=== PATIENT | male | born 1985 | race Native Hawaiian/Other Pacific Islander ===

== ENCOUNTER 2017-03-13 12:00 | Outpatient (CLI) | payer BC | END 2017-03-13 12:05 | disposition short-term general hospital (02) | LOC: AMB 12:00 | DX: R53.1 Weakness (principal); R11.2 Nausea with vomiting, unspecified | CPT/HCPCS: A0425; A0427 ==

== ENCOUNTER 2017-03-13 12:05 | Observation (INO) | payer BC ==
[~2017-03-13] VITALS: Ht 180.3 cm; Wt 116.8 kg
[2017-03-13] VITALS (7 sets, daily range): BP systolic 127–158; BP diastolic 68–96; TEMP 97.8–98.6; Ht 180.3 cm; Wt 116.8 kg
[2017-03-13 12:41] LABS: PLATELET COUNT 329 K/uL (142-355)
[2017-03-13 12:46] LABS: POTASSIUM 3.2 mmol/L (3.6-5.2)
[2017-03-14] VITALS: BP 111/50; TEMP 98.3
[2017-03-14 04:00] VITALS: BP 100/48; TEMP 98
[2017-03-14 08:00] VITALS: BP 126/64; TEMP 98.8
[2017-03-14 09:52] LABS: PARTIAL THROMBOPLASTIN TIME 25.1 SECONDS (24.5-33.6)
== END 2017-03-14 14:19 | disposition home or self-care (01) ==
LOC: ED 12:05 → MED/SURG 13:00
PROVIDERS: ADMIT Family Medicine
DX: G43.819 Other migraine, intractable, without status migrainosus (principal); R55 Syncope and collapse; R07.89 Other chest pain; J20.9 Acute bronchitis, unspecified; R11.2 Nausea with vomiting, unspecified
CPT/HCPCS: 80053; 80307; 81000; 82150; 82550; 82553; 83690; 83880; 84484; 85027; 85610; 85730; 93005; 94640; 94664; 94760; 96360; 96361; 96365; 96366; 96374; 96376; 99220; 99284; G0378; G0479; J1200; J1885; J2405; J2550

== ENCOUNTER 2020-01-04 10:56 | Outpatient (CLI) | payer OTHER | END 2020-01-04 23:59 | disposition home or self-care (01) | LOC: MRI 10:56 | DX: M54.12 Radiculopathy, cervical region (principal) ==

== ENCOUNTER 2020-09-14 08:46 | Outpatient (CLI) | payer OTHER | END 2020-09-14 20:05 | disposition home or self-care (01) | LOC: MRI 08:46 | PROVIDERS: ATTEND Anesthesiology Pain Medicine | DX: M54.5 Low back pain (principal) | CPT/HCPCS: A9576 ==

== ENCOUNTER 2022-01-01 09:14 | Outpatient (CLI) | payer OTHER | END 2022-01-01 19:09 | disposition home or self-care (01) | LOC: US 09:14 | PROVIDERS: ATTEND Nurse Practitioner Family | DX: R73.9 Hyperglycemia, unspecified (principal) ==